=== PATIENT | male | born 1935 | race Hispanic/Latino ===

== ENCOUNTER 2025-07-10 18:38 | Emergency (ER) | payer MEDICARE ==
[~2025-07-10] VITALS: Ht 160 cm; Wt 77.1 kg
[2025-07-10] MEDS ORDERED: SODIUM CHLORIDE 0.9% 1000ML 1,000 ML ONE (20:04)
[2025-07-10] MEDS: SODIUM CHLORIDE 0.9% 1000ML 1,000 ML IV SCH (20:18)
[2025-07-10] MEDS: ASPIRIN 81 MG CHEW TAB PO ONE (20:21)
[2025-07-10] MEDS ORDERED: IOPAMIDOL 370 MG/ML 100 ML INFUS..BTL INJ ONE (20:22)
[2025-07-10] MEDS ORDERED: ENOXAPARIN SODIUM INJ 100 MG/ML SYR SC ONE (21:00)
[2025-07-10] MEDS: ENOXAPARIN INJ 80 MG/0.8 ML SYR SC STA (21:04)
[2025-07-10] MEDS ORDERED: FAMOTIDINE 20 MG TAB PO SCH (21:45)
[2025-07-10] MEDS ORDERED: Morphine 2mg Syringe 2 MG/ML SYR IV PRN (21:45)
[2025-07-10] MEDS ORDERED: SODIUM CHLORIDE FLUSH 10 ML SYR INJ PRN (21:45)
[2025-07-10] MEDS ORDERED: ASPIRIN 81 MG CHEW TAB PO ONE (21:45)
[2025-07-10] MEDS ORDERED: ONDANSETRON HCL INJ 2MG/ML 2ML 2 MG/ML VIAL IV PRN (21:45)
[2025-07-10] MEDS ORDERED: NITROGLYCERIN 0.4 MG SUBL SL PRN (21:45)
[2025-07-10] MEDS ORDERED: Morphine 4mg INJECTION 4 MG/ML INJ IV PRN (21:45)
[2025-07-10] MEDS ORDERED: MUPIROCIN 2% OINT 22 GM TUBE TOP SCH (22:06)
[2025-07-10] MEDS ORDERED: METOPROLOL TARTRATE 50 MG TAB PO SCH (22:15)
[2025-07-11 00:10] VITALS: PULSE 75; RESP 18; TEMP 98
[2025-07-11 00:35] VITALS: BP 115/63; PULSE 75; RESP 18; TEMP 98; O2SAT 97
[2025-07-11] MEDS ORDERED: ASPIRIN 325 MG TAB EC PO SCH (09:00)
[2025-07-11] MEDS ORDERED: ENOXAPARIN SODIUM INJ 100 MG/ML SYR SC SCH (09:00)
== END 2025-07-11 00:35 | disposition other institution (70) ==
LOC: FSED 19:16 → ERHOLD 21:59 → UNDOADMIN 21:59 → FSED 07-11 00:35
DX: R06.02 Shortness of breath (principal); I26.92 Saddle embolus of pulmonary artery without acute cor pulmonale; R94.31 Abnormal electrocardiogram [ECG] [EKG]
CPT/HCPCS: 71046; 71260; 80053; 83880; 84484; 85025; 85379; 93005; 99284; J1650 ×2; J7030; Q9967